=== PATIENT | female | born 1960 | race American Indian/Alaskan Native ===

== ENCOUNTER 2017-02-15 18:27 | Inpatient (IN) | payer OTHER ==
[2017-02-15 19:33] LABS: Basophils % (Auto) 1.6 % (0.0-1.8); Eosinophils % (Auto) 0.8 % (0.0-4.3); Hematocrit 39.8 % (30.3-42.9); Hemoglobin 13.2 gm/dl (10.1-14.3); Mean Corpuscular HGB Conc 33 % (30-34); Mean Corpuscular Hemoglobin 31 pg (28-32); Mean Corpuscular Volume 95 fl (79-97); Platelet Count 244 K/mm3 (140-440); Red Cell Distribution Width 13.7 % (13.2-15.2); White Blood Count 6.5 K/mm3 (4.5-11.0)
[2017-02-15 19:45] LABS: Anion Gap 24 mmol/L; BUN/Creatinine Ratio 8.33; Blood Urea Nitrogen 5 mg/dL (7-17); Calcium 9.7 mg/dL (8.4-10.2); Carbon Dioxide 24 mmol/L (22-30); Chloride 92.4 mmol/L (98-107); Potassium 4.4 mmol/L (3.6-5.0); Sodium 136 mmol/L (137-145)
[2017-02-15 20:03] LABS: Glucose 519 mg/dL (65-100)
[2017-02-16] MEDS ORDERED: NACL 0.9% 1000 ML 1,000 ML IV ONE ×2 (00:28→04:02)
--- NOTE | 2017-02-16 06:08 | Emergency Department Report ---
ED General Adult HPI - General Chief complaint: Hyperglycemia Stated complaint: ABD PAIN/ELEVATED BS/CONSISTANT URINATION Time Seen by Provider: 02/16/17 03:23 Source: patient Mode of arrival: Ambulatory Limitations: No Limitations - History of Present Illness Initial comments: Patient is a 56-year-old female who presents with hyperglycemia. Patient states that for the last 4 weeks she has been urinating frequently. She states that she is not having any dysuria but she has an urge to urinate. Symptoms are severe. Nothing makes them better or worse. Patient was visiting her doctor today when he got a blood glucose. The blood glucose meter read high. Patient was told to go to the emergency department. Patient also states that she slipped on some mild abdominal pain 5 out of 10 and lower portion of her abdomen nothing makes it better or worse. Some achy type of pain. She states that the abdominal pain has subsided. Severity scale (0 -10): 6 - Related Data Previous Rx's Medication Instructions Recorded Last Taken Type Methocarbamol [Robaxin TAB] 750 mg PO BID PRN #20 tab 06/27/15 Unknown Rx traMADol [Ultram] 50 mg PO Q6HR PRN #20 tablet 06/27/15 Unknown Rx Allergies Allergy/AdvReac Type Severity Reaction Status Date / Time codeine Allergy Itching Verified 10/05/13 14:36 ED Review of Systems ROS: Stated complaint: ABD PAIN/ELEVATED BS/CONSISTANT URINATION Other details as noted in HPI Constitutional: denies: chills, fever Eyes: denies: eye pain, eye discharge, vision change ENT: denies: ear pain, throat pain Respiratory: denies: cough, shortness of breath, wheezing Cardiovascular: denies: chest pain, palpitations Endocrine: no symptoms reported Gastrointestinal: abdominal pain. denies: nausea, diarrhea Genitourinary: frequency. denies: urgency, dysuria, discharge Musculoskeletal: denies: back pain, joint swelling, arthralgia Skin: denies: rash, lesions Neurological: denies: headache, weakness, paresthesias Psychiatric: denies: anxiety, depression Hematological/Lymphatic: denies: easy bleeding, easy bruising ED Past Medical Hx - Past Medical History Previous Medical History?: No Hx Hypertension: No Hx CVA: No Hx Heart Attack/AMI: No - Surgical History Past Surgical History?: Yes Additional Surgical History: Breast reduction - Social History Smoking Status: Never Smoker Substance Use Type: Alcohol - Medications Home Medications: Home Medications Medication Instructions Recorded Confirmed Last Taken Type Methocarbamol [Robaxin TAB] 750 mg PO BID PRN #20 tab 06/27/15 Unknown Rx traMADol [Ultram] 50 mg PO Q6HR PRN #20 tablet 06/27/15 Unknown Rx ED Physical Exam - General Limitations: No Limitations General appearance: alert, in no apparent distress - Head Head exam: Present: atraumatic, normocephalic - Eye Eye exam: Present: normal appearance - ENT ENT exam: Present: mucous membranes moist - Neck Neck exam: Present: normal inspection - Respiratory Respiratory exam: Present: normal lung sounds bilaterally. Absent: respiratory distress - Cardiovascular Cardiovascular Exam: Present: regular rate, normal rhythm. Absent: systolic murmur, diastolic murmur, rubs, gallop - GI/Abdominal GI/Abdominal exam: Present: soft, normal bowel sounds - Extremities Exam Extremities exam: Present: normal inspection - Back Exam Back exam: Present: normal inspection - Neurological Exam Neurological exam: Present: alert, oriented X3 - Psychiatric Psychiatric exam: Present: normal affect, normal mood - Skin Skin exam: Present: warm, dry, intact, normal color. Absent: rash ED Course Vital Signs 02/15/17 02/15/17 18:38 23:44 Temperature 98.1 F 98.8 F Pulse Rate 88 79 Respiratory 12 Rate Blood Pressure 124/79 146/84 O2 Sat by Pulse 100 100 Oximetry - Reevaluation(s) Reevaluation #1: 02/16/17 06:12 Patient's repeat blood glucose is [address] Partida (the hospitalist) patient will be admitted 02/16/17 06:16 ED Medical Decision Making - Lab Data Result diagrams: 02/15/17 19:12 02/15/17 19:12 Lab Results 02/15/17 02/15/17 02/15/17 Range/Units 18:38 19:12 19:12 WBC 6.5 (4.5-11.0) K/mm3 RBC 4.20 (3.65-5.03) M/mm3 Hgb 13.2 (10.1-14.3) gm/dl Hct 39.8 (30.3-42.9) % MCV 95 (79-97) fl MCH 31 (28-32) pg MCHC 33 (30-34) % RDW 13.7 (13.2-15.2) % Plt Count 244 (140-440) K/mm3 Lymph % (Auto) 34.6 (13.4-35.0) % Keith % (Auto) 5.6 (0.0-7.3) % Eos % (Auto) 0.8 (0.0-4.3) % Baso % (Auto) 1.6 (0.0-1.8) % Lymph # 2.3 (1.2-5.4) K/mm3 Keith # 0.4 (0.0-0.8) K/mm3 Eos # 0.1 (0.0-0.4) K/mm3 Baso # 0.1 (0.0-0.1) K/mm3 Seg Neutrophils % 57.4 (40.0-70.0) % Seg Neutrophils # 3.7 (1.8-7.7) K/mm3 VBG pH (7.320-7.420) Sodium 136 L (137-145) mmol/L Potassium 4.4 (3.6-5.0) mmol/L Chloride 92.4 L (98-107) mmol/L Carbon Dioxide 24 (22-30) mmol/L Anion Gap 24 mmol/L BUN 5 L (7-17) mg/dL Creatinine 0.6 L (0.7-1.2) mg/dL Estimated GFR > 60 ml/min BUN/Creatinine Ratio 8.33 % Glucose 519 H* (65-100) mg/dL POC Glucose > 500 H (70-105) Calcium 9.7 (8.4-10.2) mg/dL 02/15/17 02/16/17 Range/Units 19:12 04:04 WBC (4.5-11.0) K/mm3 RBC (3.65-5.03) M/mm3 Hgb (10.1-14.3) gm/dl Hct (30.3-42.9) % MCV (79-97) fl MCH (28-32) pg MCHC (30-34) % RDW (13.2-15.2) % Plt Count (140-440) K/mm3 Lymph % (Auto) (13.4-35.0) % Keith % (Auto) (0.0-7.3) % Eos % (Auto) (0.0-4.3) % Baso % (Auto) (0.0-1.8) % Lymph # (1.2-5.4) K/mm3 Keith # (0.0-0.8) K/mm3 Eos # (0.0-0.4) K/mm3 Baso # (0.0-0.1) K/mm3 Seg Neutrophils % (40.0-70.0) % Seg Neutrophils # (1.8-7.7) K/mm3 VBG pH 7.349 (7.320-7.420) Sodium (137-145) mmol/L Potassium (3.6-5.0) mmol/L Chloride (98-107) mmol/L Carbon Dioxide (22-30) mmol/L Anion Gap mmol/L BUN (7-17) mg/dL Creatinine (0.7-1.2) mg/dL Estimated GFR ml/min BUN/Creatinine Ratio % Glucose (65-100) mg/dL POC Glucose 352 H (70-105) Calcium (8.4-10.2) mg/dL - Medical Decision Making Chief medical diagnosis: Hyperglycemia and Differential medical diagnosis diabetes ketoacidosis, hyperosmolar nonketotic state next CBC, CMP, point of care glucose, fluids and I will also get insulin Critical care attestation.: If time is entered above; I have spent that time in minutes in the direct care of this critically ill patient, excluding procedure time. ED Disposition Clinical Impression: Hyperglycemia, Urinary frequency, Diabetes mellitus, new onset Disposition: OP ADMIT IP TO THIS HOSP Is pt being admited?: Yes Does the pt Need Aspirin: No Condition: Stable Referrals: PRIMARY CARE,MD [Primary Care Provider] - 3-5 Days Time of Disposition: 06:16
[2017-02-16] MEDS ORDERED: TYLENOL PO PRN (06:10)
[2017-02-16] MEDS ORDERED: D50W (25GM) Syringe IV PRN (06:10)
[2017-02-16] MEDS ORDERED: DULCOLAX PR PRN (06:10)
[2017-02-16] MEDS ORDERED: ZOFRAN IV PRN (06:10)
[2017-02-16] MEDS ORDERED: MILK OF MAGNESIA PO PRN (06:10)
--- NOTE | 2017-02-16 06:21 | History and Physical Report ---
History of Present Illness Date of examination: 02/16/17 History of present illness: This is a 56-year-old woman with no medical problems comes emergency room with complaints of increased thirst, frequent urination and weight loss of 22 pounds over the last 2 months. Her employer told her to check her sugar yesterday and it read high, she was sent sent to the emergency room for further evaluation Review Of Systems: Constitutional: no fever, chills Ears, eyes, nose, mouth and throat: no nasal congestion, no nasal discharge, no sinus pressure, blurry vision, diplopia Neck: No neck pain or rigidity. Cardiovascular: chest pain, orthopnea, palpitations Respiratory: No shortness of breath, cough Gastrointestinal: abdominal pain, hematochezia Genitourinary : no dysuria, frequency , hematuria Musculoskeletal: no joint swelling or muscle ache Integumentary: no rash, no pruritis Neurological: no parathesias, focal weakness Endocrine: no cold or heat intolerance, Hematologic/Lymphatic: no easy bruising, no easy bleeding, no gland swelling Allergic/Immunologic: no urticaria, no angioedema. PAST MEDICAL HISTORY: None PAST SURGICAL HISTORY: Breast reduction FAMILY HISTORY: Diabetes SOCIAL HISTORY: Denies alcohol, tobacco, drugs Medications and Allergies Allergies Allergy/AdvReac Type Severity Reaction Status Date / Time codeine Allergy Itching Verified 10/05/13 14:36 Home Medications Medication Instructions Recorded Confirmed Last Taken Type Methocarbamol [Robaxin TAB] 750 mg PO BID PRN #20 tab 06/27/15 Unknown Rx traMADol [Ultram] 50 mg PO Q6HR PRN #20 tablet 06/27/15 Unknown Rx Active Meds: Active Medications Acetaminophen (Tylenol) 650 mg PO Q4H PRN PRN Reason: Pain MILD(1-3)/Fever >100.5/CEJA Bisacodyl (Dulcolax) 10 mg NC QDAY PRN PRN Reason: Constipation unrelieved by MOM Dextrose (D50w (25gm)) 50 ml IV PRN PRN PRN Reason: Hypoglycemia Enoxaparin Sodium (Lovenox) 30 mg SUB-Q QDAY ERENDIRA Sodium Chloride (Nacl 0.45% 1000 Ml) 1,000 mls @ 100 mls/hr IV DIRECT ERENDIRA Insulin Aspart (Novolog) 0 units SUB-Q ACHS ERENDIRA PRN Reason: Protocol Magnesium Hydroxide (Milk Of Magnesia) 30 ml PO Q4H PRN PRN Reason: Constipation Ondansetron HCl (Zofran) 4 mg IV Q8H PRN PRN Reason: N/V unrelieved by Reglan Exam - Physical Exam Narrative exam: Gen. appearance: Patient lying in bed, no apparent distress HEENT: Normocephalic, atraumatic, pupils equally round and reactive to light, extraocular movement intact, and no sclericterus,. No JVD or thyromegaly or nodule,neck supple, no carotid bruit ,mucous membranes moist, no exudate or erythema Heart: S1, S2, regular rate and rhythm Lungs: Clear to auscultation bilaterally, breathing comfortable Abdomen: Positive bowel sounds, nontender, nondistended, no organomegaly Extremity: No edema, cyanosis, clubbing Skin: No rash, nodules, warm, dry Neuro: Oriented 3, cranial nerves II-12 intact, speech is fluent, motor and sensory intact - Constitutional Vitals: Temp Pulse Resp BP Pulse Ox 98.8 F 79 12 146/84 100 02/15/17 23:44 02/15/17 23:44 02/15/17 23:44 02/15/17 23:44 02/15/17 23:44 Results - Labs CBC & Chem 7: 02/15/17 19:12 02/15/17 19:12 Labs: Abnormal lab results 02/15/17 02/15/17 02/16/17 Range/Units 18:38 19:12 04:04 Sodium 136 L (137-145) mmol/L Chloride 92.4 L (98-107) mmol/L BUN 5 L (7-17) mg/dL Creatinine 0.6 L (0.7-1.2) mg/dL Glucose 519 H* (65-100) mg/dL POC Glucose > 500 H 352 H (70-105) Assessment and Plan Assessment New-onset diabetes Plan Admits medicine Start IV fluid, metformin Check fingersticks, including A1c, initiate insulin sliding scale Consult dietitian for diabetes education Start aspirin, DVT prophylaxis
--- NOTE | 2017-02-16 07:50 | Admit Criteria Form ---
Admission Criteria Documentation: ABDOMINAL PAIN Clinical Indications for Admission to Inpatient Care ( [place]/check or initial the applicable condition/criteria): Admission is indicated for ANY ONE of the following (1)(2)(3)(4)(5)(6): [ ]I. Surgery needed that cannot be performed on ambulatory basis [ ]II. Peritoneal signs present (eg, rebound tenderness, rigidity) [ ]III. Evaluation requires patient to not eat or drink for extended period ( eg, more than 24 hours). [X ]IV. Inpatient admission required[B] rather than observation care (see Abdominal Pain: Observation Care guideline as appropriate) because of ANY ONE of the following(7)(8)(9): [ ] a) Hemodynamic instability [ ]b) Severe pain requiring acute inpatient management [ ]c) Identification of etiology or finding that requires inpatient care (eg, aortic dissection, free air,bowel ischemia)(10) [ ]d) Absent bowel sounds with complete ileus (11) [ ]e) Signs of intestinal obstruction[C] [ ]f) Suspected toxic megacolon [ ]g) Severe electrolyte abnormalities requiring inpatient care [ ]h) High fever or infection requiring inpatient admission as indicated by ANY ONE of the following (12)(13): [ ]i) Appropriate outpatient or observation care antimicrobial treatment unavailable, not effective, or not feasible [ ]ii) Documented bacteremia [ ]iii) Temperature greater than 104.9 degrees F (40.5 degrees C) (oral) [ ]iv) Temperature greater than 103.1 degrees F (39.5 degrees C) ( oral) or less than 96.8 degrees F (36 degrees C) (rectal) that does not respond to all emergency treatment measures [ ]i) IV fluid required rather than oral rehydration to replace significant ongoing (eg, for greater than 24 hours) losses (greater than 3 L/m2 per day)(14)(15) [ ]j) Percutaneous or open drainage (eg, abscess, biliary tract) procedures [ ]k) Parenteral nutrition regimen that must be implemented on inpatient basis [X ]l) Other condition, treatment, or monitoring requiring inpatient admission Extended stay beyond goal length of stay may be needed for (1)(3)(4)(10)(16): [ ]a) Surgery (e.g., colectomy, revascularization procedure) [ ]b) Persistent abdominal pain with suspected intra-abdominal process [ ]c) Diagnosed condition requiring continued stay (e.g., pancreatitis, complicated diverticulitis) The original [facility] [employer] content created by [facility] has been revised. The portions of the content which have been revised are identified through the use of italic text or in bold, and [facility] has neither reviewed nor approved the modified material.All other unmodified content is copyright [facility]. Please see references footnoted in the original [facility] edition 2017 Admission Criteria Met: Yes
[2017-02-16 07:54] LABS: Bilirubin,Urine NEG (Negative); Blood,Urine NEG (Negative); Ketones,Urine 80 mg/dL (Negative); Leukocyte Esterase,Urine NEG (Negative); Mucus,Urine FEW /HPF; Nitrite,Urine NEG (Negative); Protein,Urine <15 mg/dL mg/dL (Negative); Urobilinogen,Urine < 2.0 mg/dL (<2.0)
[2017-02-16] MEDS: GLUCOPHAGE PO SCH (10:36)
[2017-02-16] MEDS: NOVOLOG SUB-Q SCH ×4 (10:37→22:00)
[2017-02-16] MEDS: LOVENOX SUB-Q SCH (10:37)
[2017-02-16] MEDS: PEPCID PO SCH ×2 (12:49→21:22)
[2017-02-16] MEDS: NACL 0.45% 1000 ML 1,000 ML IV SCH (12:52)
--- NOTE | 2017-02-16 13:06 | Event Note ---
Date: 02/16/17 Patient admitted for new onset diabetes mellitus, hemoglobin A1c 15, patient started on insulin and metformin. Patient need education about injecting herself.
[2017-02-16] MEDS ORDERED: AMBIEN PO PRN (20:58)
[2017-02-17] MEDS: NACL 0.45% 1000 ML 1,000 ML IV SCH (05:22)
[2017-02-17 07:11] LABS: Basophils % (Auto) 0.8 % (0.0-1.8); Eosinophils % (Auto) 1.4 % (0.0-4.3); Hematocrit 36.3 % (30.3-42.9); Hemoglobin 12.1 gm/dl (10.1-14.3); Mean Corpuscular HGB Conc 33 % (30-34); Mean Corpuscular Hemoglobin 32 pg (28-32); Mean Corpuscular Volume 95 fl (79-97); Platelet Count 235 K/mm3 (140-440); Red Blood Count 3.82 M/mm3 (3.65-5.03); Red Cell Distribution Width 14.3 % (13.2-15.2); White Blood Count 5.5 K/mm3 (4.5-11.0)
[2017-02-17 07:25] LABS: Anion Gap 16 mmol/L; Blood Urea Nitrogen 5 mg/dL (7-17); Calcium 7.8 mg/dL (8.4-10.2); Carbon Dioxide 21 mmol/L (22-30); Chloride 104.8 mmol/L (98-107); Glucose 289 mg/dL (65-100); Sodium 138 mmol/L (137-145)
--- NOTE | 2017-02-17 07:58 | Discharge Summary ---
Providers - Providers Date of Admission: 02/16/17 06:10 Date of discharge: 02/17/17 Attending physician: JAEL HO MD 02/16/17 06:21 Consult to Dietitian/Nutrition [CONS] Routine Physician Instructions: new onset dm Reason For Exam: Reason for Consult: Diet education Primary care physician: DIALYSIS CLINICAL MANAGER Hospitalization Reason for admission: new onset diabetes mellitus with hypoglycemia Condition: Stable Hospital course: Admission H/P This is a 56-year-old woman with no medical problems comes emergency room with complaints of increased thirst, frequent urination and weight loss of 22 pounds over the last 2 months. Her employer told her to check her sugar yesterday and it read high, she was sent sent to the emergency room for further evaluation. In the ED her blood sugar was in the 500's, but was not in DKA and patient was admitted to the floor and was treated with insulin. Was given diabetic education including insulin injection. patient was diagnosed with type 2 dm given her hemoglobin A1c wass 15 she needs insulin. Her Insulin need was calculated and was discharged with 70/30. patient was advised to keep her blood glucose log and to take to her PCP. Patient was hemodynamically stable at the time of discharge. Her questions and concerns were addressed at bed side. Disposition: [facility] ([facility]) Time spent for discharge: 31 minutes - Discharge Diagnoses (1) Diabetes mellitus, new onset Status: Acute (2) Hyperglycemia Status: Acute (3) Urinary frequency Status: Acute Core Measure Documentation - Palliative Care Palliative Care/ Comfort Measures: Not Applicable - Core Measures Any of the following diagnoses?: none Exam - Physical Exam Narrative exam: Not in cardiopulmonary distress. The patient appeared well nourished and normally developed. Vital signs as documented. Head exam is unremarkable. No scleral icterus . Neck is without jugular venous distension, thyromegaly, or carotid bruits. Lungs are clear to auscultation. Cardiac exam reveals regular rate and Rhythm. First and second heart sounds normal. No murmurs, rubs or gallops. Abdominal exam reveals normal bowel sounds, no masses, no organomegaly and no aortic enlargement. Extremities are nonedematous and both femoral and pedal pulses are normal. COOK SUPERVISOR: Alert and oriented 3. No focal weakness. - Constitutional Vitals: Temp Pulse Resp BP Pulse Ox 98.1 F 70 20 124/63 97 02/17/17 05:40 02/17/17 06:10 02/17/17 05:40 02/17/17 05:40 02/17/17 05:40 Plan Activity: no restrictions Weight Bearing Status: Full Weight Bearing Diet: diabetic Follow up with: [facility] [Provider Group] - 7 Days PRIMARY CARE, [Primary Care Provider] - 3-5 Days Prescriptions: Insulin NPH/Regular [NovoLIN 70/30] 20 unit SQ BIDDIAB #2 bottle
[2017-02-17] MEDS: NOVOLOG SUB-Q SCH (08:50)
[2017-02-17] MEDS: GLUCOPHAGE PO SCH (08:54)
[2017-02-17] MEDS: PEPCID PO SCH (09:00)
[2017-02-17] MEDS: LOVENOX SUB-Q SCH (09:00)
[2017-02-17 10:07] VITALS: BP 129/68
== END 2017-02-17 11:45 | disposition home or self-care (01) | DRG 639 ==
LOC: ED 18:27 → 4A 02-16 06:10
PROVIDERS: ADMIT Internal Medicine; ATTEND Internal Medicine
DX: E11.65 Type 2 diabetes mellitus with hyperglycemia (principal); R35.0 Frequency of micturition; Z88.5 Allergy status to narcotic agent; Z79.899 Other long term (current) drug therapy
CPT/HCPCS: 36415; 80048; 81001; 82805; 82962; 83036; 85025; 96361; 96374; 96376; J1650; J1815; J7030